=== PATIENT | female | born 1980 | race Caucasian/White ===

== ENCOUNTER 2021-04-05 09:42 | Day surgery (SDC) | payer OTHER ==
[~2021-04-05] VITALS: Ht 157.5 cm; Wt 71.1 kg
[~2021-04-05 09:42] MED LIST: ALLE10TA62 PO; EZET10TA21 PO; FEXO60TA98 PO; FLON1SPR NARES; NITR1CAP26 PO; NS 1,000 ML IV ONE; PANT40TA29 PO; RIZA5TAB2 PO; URIB118C PO; VENL37.598 PO; VITMTA PO; [UNRECOGNIZED DRUG - OTHER]; [UNRECOGNIZED DRUG - OTHER]
[2021-04-05] MEDS ORDERED: POLYOPD OS (10:27)
[2021-04-05] MEDS ORDERED: RIBO400T PO (10:27)
[2021-04-05] MEDS ORDERED: ZOLO25TA PO (10:27)
[2021-04-05] MEDS ORDERED: LIDOCAINE 2% 100MG/5ML SDV (FOR ANES.) As Ordered ONE (11:25)
[2021-04-05] MEDS ORDERED: fentaNYL 100 MCG/2 ML INJECTION As Ordered ONE (11:25)
[2021-04-05] MEDS ORDERED: propofoL 500 MG/50 ML VIAL As Ordered ONE (11:25)
[2021-04-05 12:41] VITALS: BP 126/77
== END 2021-04-05 12:40 | disposition home or self-care (01) ==
LOC: M OPP 09:42
PROVIDERS: ATTEND Internal Medicine Gastroenterology
DX: K63.5 Polyp of colon (principal); K64.8 Other hemorrhoids; R19.4 Change in bowel habit; R63.4 Abnormal weight loss; K29.70 Gastritis, unspecified, without bleeding; R13.10 Dysphagia, unspecified; R10.13 Epigastric pain; Z79.899 Other long term (current) drug therapy; Z88.8 Allergy status to other drugs, medicaments and biological substances; Z91.041 Radiographic dye allergy status; F17.210 Nicotine dependence, cigarettes, uncomplicated
CPT/HCPCS: 43239; 45380; 88305; J3010

== ENCOUNTER 2021-04-14 19:14 | Emergency (ER) | payer OTHER ==
[~2021-04-14] VITALS: Ht 157.5 cm; Wt 70.9 kg
[~2021-04-14 19:14] MED LIST changes: -NS 1,000 ML IV ONE; +POLYOPD OS; +RIBO400T PO; +ZOLO25TA PO
[2021-04-14 19:15] VITALS: BP 142/92
[2021-04-14] MEDS ORDERED: gi cocktail PO (19:25)
[2021-04-14] MEDS ORDERED: CARA1TAB6 PO (19:25)
== END 2021-04-15 00:15 | disposition left against medical advice (07) ==
LOC: M ED 19:14
DX: Z53.21 Procedure and treatment not carried out due to patient leaving prior to being seen by health care provider (principal)

== ENCOUNTER → 2021-04-19 | Outpatient (CLI) | payer OTHER ==
[~2021-04-19] MED LIST changes: +CARA1TAB6 PO; +gi cocktail PO
== END ==
LOC: M WHC 04-18 10:05
PROVIDERS: ATTEND Nurse Practitioner Family
DX: Z12.31 Encounter for screening mammogram for malignant neoplasm of breast (principal)

== ENCOUNTER → 2021-04-23 | Outpatient (CLI) | payer OTHER ==
[2021-04-23 10:55] LABS: BASO % 0.1 % (0.0-1.0); EOS % 0.1 % (0.0-3.0); HEMATOCRIT 43.8 % (36.0-47.0); HEMOGLOBIN 14.2 g/dl (12.0-15.5); LYMPH % 28.7 % (24.0-44.0); MEAN CORPUSCULAR HEMOGLOBIN 28.2 pg (27.0-33.0); MEAN CORPUSCULAR HGB CONC 32.4 g/dl (32.0-36.5); MEAN CORPUSCULAR VOLUME 87.1 fl (80.0-96.0); MONO # 0.4 10^3/uL (0.0-0.8); MONO % 5.3 % (2.0-8.0); NEUTROPHILS # 4.5 10^3/uL (1.5-8.5); NEUTROPHILS % 65.4 % (36.0-66.0); PLATELET COUNT, AUTOMATED 269 10^3/uL (150-450); RED BLOOD COUNT 5.03 10^6/uL (4.00-5.40)
[2021-04-23 11:16] LABS: ALBUMIN 3.9 GM/DL (3.2-5.2); ALT/SGPT 32 U/L (12-78); BILIRUBIN,DIRECT 0.2 MG/DL (0.0-0.2); BILIRUBIN,TOTAL 0.5 MG/DL (0.2-1.0); BLOOD UREA NITROGEN 15 MG/DL (7-18); CALCIUM LEVEL 9.2 MG/DL (8.5-10.1); CARBON DIOXIDE LEVEL 30 MEQ/L (21-32); CHLORIDE LEVEL 108 MEQ/L (98-107); GLOMERULAR FILTRATION RATE > 60.0 (>58); GLUCOSE, FASTING 110 MG/DL (70-100); IRON (FE) 57 UG/DL (50-170); PERCENT SATURATION 16.9 % (13.2-45.0); POTASSIUM SERUM 4.4 MEQ/L (3.5-5.1); SODIUM LEVEL 142 MEQ/L (136-145); TOTAL IRON BINDING CAPACITY 338 UG/DL (250-450); TOTAL PROTEIN 7.1 GM/DL (6.4-8.2)
== END ==
LOC: M LAB 09:44
PROVIDERS: ATTEND Internal Medicine Gastroenterology
DX: R10.13 Epigastric pain (principal)

== ENCOUNTER → 2021-05-18 | Outpatient (CLI) | payer OTHER | LOC: M WHC 09:56 | PROVIDERS: ATTEND Nurse Practitioner Family | DX: R92.8 Other abnormal and inconclusive findings on diagnostic imaging of breast (principal) | CPT/HCPCS: 76642; 77065; G0279 ==

== ENCOUNTER 2021-05-24 15:51 | Emergency (ER) | payer OTHER ==
[~2021-05-24] VITALS: Ht 157.5 cm; Wt 70.8 kg
[2021-05-24 15:52] VITALS: BP 127/92
[2021-05-24 17:37] LABS: BASO % 0.1 % (0.0-1.0); EOS % 0.1 % (0.0-3.0); HEMATOCRIT 46.3 % (36.0-47.0); LYMPH # 2.1 10^3/uL (1.5-5.0); LYMPH % 23.7 % (24.0-44.0); MEAN CORPUSCULAR HEMOGLOBIN 28.4 pg (27.0-33.0); MEAN CORPUSCULAR HGB CONC 32.4 g/dl (32.0-36.5); MEAN CORPUSCULAR VOLUME 87.7 fl (80.0-96.0); MONO # 0.4 10^3/uL (0.0-0.8); MONO % 4.6 % (2.0-8.0); NEUTROPHILS # 6.3 10^3/uL (1.5-8.5); NEUTROPHILS % 71.3 % (36.0-66.0); PLATELET COUNT, AUTOMATED 276 10^3/uL (150-450); RED BLOOD COUNT 5.28 10^6/uL (4.00-5.40); WHITE BLOOD COUNT 8.8 10^3/uL (4.0-10.0)
[2021-05-24 18:04] LABS: ALBUMIN 3.9 GM/DL (3.2-5.2); ALT/SGPT 36 U/L (12-78); BILIRUBIN,DIRECT 0.2 MG/DL (0.0-0.2); BILIRUBIN,TOTAL 0.6 MG/DL (0.2-1.0); BLOOD UREA NITROGEN 8 MG/DL (7-18); CALCIUM LEVEL 9.4 MG/DL (8.5-10.1); CARBON DIOXIDE LEVEL 29 MEQ/L (21-32); CHLORIDE LEVEL 106 MEQ/L (98-107); GLOMERULAR FILTRATION RATE 58.6 (>58); GLUCOSE, FASTING 110 MG/DL (70-100); LIPASE 219 U/L (73-393); POTASSIUM SERUM 4.2 MEQ/L (3.5-5.1); SODIUM LEVEL 139 MEQ/L (136-145); TOTAL PROTEIN 7.1 GM/DL (6.4-8.2)
[2021-05-24 18:58] LABS: HCG, SERUM QUALITATIVE NEGATIVE (NEGATIVE)
[2021-05-24] MEDS ORDERED: BUSP10TA PO (20:33)
== END 2021-05-24 21:23 | disposition home or self-care (01) ==
LOC: M ED 15:51
DX: K29.50 Unspecified chronic gastritis without bleeding (principal); Z79.899 Other long term (current) drug therapy; Z91.041 Radiographic dye allergy status; Z88.7 Allergy status to serum and vaccine; Z88.8 Allergy status to other drugs, medicaments and biological substances; Z91.89 Other specified personal risk factors, not elsewhere classified

== ENCOUNTER 2021-08-28 03:46 | Emergency (ER) | payer OTHER ==
[~2021-08-28] VITALS: Ht 157.5 cm; Wt 66.8 kg
[~2021-08-28 03:46] MED LIST changes: +BUSP10TA PO
[2021-08-28] MEDS ORDERED: HYDR-643 PO (04:03)
[2021-08-28] MEDS ORDERED: VENL1TAB35 PO (04:03)
[2021-08-28 06:00] VITALS: BP 120/85
[2021-08-28] MEDS ORDERED: ACETAMINOPHEN 500 MG TAB PO ONE (06:45)
[2021-08-28] MEDS ORDERED: KETOROLAC 60MG 2ML VIAL IM ONE (06:45)
== END 2021-08-28 07:40 | disposition home or self-care (01) ==
LOC: M ED 03:46
DX: S49.92XA Unspecified injury of left shoulder and upper arm, initial encounter (principal); S00.502A Unspecified superficial injury of oral cavity, initial encounter; W18.39XA Other fall on same level, initial encounter; Y92.009 Unspecified place in unspecified non-institutional (private) residence as the place of occurrence of the external cause; Y93.K1 Activity, walking an animal; Y99.8 Other external cause status; E78.5 Hyperlipidemia, unspecified; F43.10 Post-traumatic stress disorder, unspecified; F41.9 Anxiety disorder, unspecified; Z91.041 Radiographic dye allergy status; Z91.048 Other nonmedicinal substance allergy status; Z88.7 Allergy status to serum and vaccine; Z88.8 Allergy status to other drugs, medicaments and biological substances; Z88.2 Allergy status to sulfonamides
CPT/HCPCS: 70450; 70486; 73030; 73080; 96372; 99283; J1885

== ENCOUNTER → 2021-11-21 | Outpatient (CLI) | payer OTHER ==
[~2021-11-21] MED LIST changes: +HYDR-643 PO; +VENL1TAB35 PO
== END ==
LOC: M RAD 08:19
PROVIDERS: ATTEND Nurse Practitioner Family
DX: R10.9 Unspecified abdominal pain (principal)
CPT/HCPCS: 78264; A9541

== ENCOUNTER → 2022-01-23 | Outpatient (CLI) | payer OTHER | LOC: M WHC 12:55 | PROVIDERS: ATTEND Nurse Practitioner Family | DX: R92.8 Other abnormal and inconclusive findings on diagnostic imaging of breast (principal) | CPT/HCPCS: 77065; G0279 ==

== ENCOUNTER → 2022-05-08 | Outpatient (CLI) | payer OTHER | LOC: M WHC 14:01 | PROVIDERS: ATTEND Nurse Practitioner Family | DX: Z12.31 Encounter for screening mammogram for malignant neoplasm of breast (principal) ==

== ENCOUNTER → 2023-01-04 | Outpatient (RCR) | payer OTHER ==
[~2023-01-04] MED LIST changes: +ARTIDRO4 OS; -POLYOPD OS
== END ==
LOC: M PT 08:49
PROVIDERS: ATTEND Nurse Practitioner Family
DX: M25.812 Other specified joint disorders, left shoulder (principal)

== ENCOUNTER 2023-02-01 07:37 | Outpatient (RCR) | payer OTHER | END 2023-02-04 | LOC: M PT 07:37 | PROVIDERS: ATTEND Nurse Practitioner Family | DX: M25.812 Other specified joint disorders, left shoulder (principal) ==

== ENCOUNTER 2023-03-06 07:45 | Outpatient (RCR) | payer OTHER ==
[~2023-03-06 07:45] MED LIST changes: -NITR1CAP26 PO; +NITR25CA2 PO
== END 2023-03-07 ==
LOC: M PT 07:45
PROVIDERS: ATTEND Nurse Practitioner Family
DX: M25.812 Other specified joint disorders, left shoulder (principal)

== ENCOUNTER → 2023-04-05 | Outpatient (RCR) | payer OTHER | LOC: M PT 03-08 07:41 | PROVIDERS: ATTEND Nurse Practitioner Family | DX: M25.812 Other specified joint disorders, left shoulder (principal) ==

== ENCOUNTER 2023-04-26 07:43 | Outpatient (RCR) | payer OTHER | END 2023-05-06 | LOC: M PT 07:43 | PROVIDERS: ATTEND Nurse Practitioner Family | DX: M25.812 Other specified joint disorders, left shoulder (principal) ==

== ENCOUNTER → 2023-05-10 | Outpatient (CLI) | payer OTHER | LOC: M WHC 11:31 | PROVIDERS: ATTEND Nurse Practitioner Family | DX: Z12.31 Encounter for screening mammogram for malignant neoplasm of breast (principal); R92.323 Mammographic fibroglandular density, bilateral breasts ==

== ENCOUNTER 2023-07-22 04:42 | Emergency (ER) | payer OTHER ==
[~2023-07-22] VITALS: Ht 157.5 cm; Wt 56.6 kg
[2023-07-22 04:46] VITALS: BP 150/94; TEMP 97.4; O2SAT 96
== END 2023-07-22 05:03 | disposition left against medical advice (07) ==
LOC: M ED 04:42 → EDBD 04:42 → M ED 05:03
DX: Z53.21 Procedure and treatment not carried out due to patient leaving prior to being seen by health care provider (principal)

== ENCOUNTER 2024-01-23 13:40 | Emergency (ER) | payer OTHER ==
[~2024-01-23] VITALS: Ht 157.5 cm; Wt 59.1 kg
[2024-01-23] MEDS ORDERED: VENL150C43 (14:01)
[2024-01-23 15:39] LABS: BASO % 0.3 % (0.0-1.0); EOS # 0.1 10^3/uL (0.0-0.5); EOS % 0.9 % (0.0-3.0); HEMOGLOBIN 15.9 g/dl (12.0-15.5); LYMPH # 1.2 10^3/uL (1.5-5.0); LYMPH % 15.8 % (24.0-44.0); MEAN CORPUSCULAR HEMOGLOBIN 29.1 pg (27.0-33.0); MEAN CORPUSCULAR HGB CONC 33.1 g/dl (32.0-36.5); MEAN CORPUSCULAR VOLUME 87.9 fl (80.0-96.0); MONO # 0.3 10^3/uL (0.0-0.8); MONO % 3.9 % (2.0-8.0); NEUTROPHILS % 78.8 % (36.0-66.0); PLATELET COUNT, AUTOMATED 220 10^3/uL (150-450); RED BLOOD COUNT 5.46 10^6/uL (4.00-5.40); WHITE BLOOD COUNT 7.7 10^3/uL (4.0-10.0)
[2024-01-23 15:58] LABS: CK-MB VALUE MASS 1.3 NG/ML (<3.6)
[2024-01-23 15:59] LABS: CPK CREATINE PHOSPHOKINASE 108 U/L (34-145)
[2024-01-23 16:00] LABS: BLOOD UREA NITROGEN 12 MG/DL (9-23); CALCIUM LEVEL 9.8 MG/DL (8.5-10.1); CARBON DIOXIDE LEVEL 27 MMOL/L (20-31); CHLORIDE LEVEL 105 MMOL/L (98-107); GLOMERULAR FILTRATION RATE > 60.0 (>58); GLUCOSE, FASTING 113 MG/DL (60-100); POTASSIUM SERUM 3.8 MMOL/L (3.5-5.1); SODIUM LEVEL 141 MMOL/L (136-145)
[2024-01-23 16:02] LABS: THYROID STIMULATING HORMONE 0.602 uIU/ML (0.55-4.78)
[2024-01-23 18:06] LABS: APPEARANCE, URINE CLEAR (CLEAR); BACTERIA, URINE AUTO NEGATIVE (NEGATIVE); BILIRUBIN, URINE AUTO NEGATIVE (NEGATIVE); BLOOD, URINE BLOOD 1+ (NEGATIVE); COLOR, URINE YELLOW (YELLOW); GLUCOSE, URINE (UA) AUTO NEGATIVE (NEGATIVE); KETONE, URINE AUTO 2+ mg/dL (NEGATIVE); LEUKOCYTE ESTERASE, URINE AUTO NEGATIVE (NEGATIVE); MUCUS, URINE SMALL (NEGATIVE); NITRITE, URINE AUTO NEGATIVE (NEGATIVE); PROTEIN, URINE AUTO NEGATIVE (NEGATIVE); RBC, URINE AUTO 11 /HPF (0-3); SPECIFIC GRAVITY URINE AUTO 1.012 (1.002-1.035); SQUAMOUS EPITHELIAL CELL UR AU 2 /HPF (0-6); WBC, URINE AUTO 0 /HPF (0-3)
[2024-01-23] MEDS: ONDANSETRON 4MG ORAL DISINTEGRATING TAB PO ONE (18:20)
[2024-01-23 18:26] LABS: AMPHETAMINES LEVEL URINE NEGATIVE (NEGATIVE); BARBITURATES URINE NEGATIVE (NEGATIVE); BENZODIAZEPINES URINE NEGATIVE (NEGATIVE); COCAINE METABOLITE URINE NEGATIVE (NEGATIVE); METHADONE URINE NEGATIVE (NEGATIVE)
[2024-01-23 18:27] LABS: OPIATES URINE NEGATIVE (NEGATIVE); PHENCYCLIDINE URINE NEGATIVE (NEGATIVE)
[2024-01-23 18:29] LABS: CANNABINOIDS URINE POSITIVE (NEGATIVE)
[2024-01-23 18:47] VITALS: BP 146/93; TEMP 99.6; O2SAT 97
== END 2024-01-23 19:44 | disposition home or self-care (01) ==
LOC: M ED 13:40 → EDBD 13:40 → M ED 19:44
DX: R55 Syncope and collapse (principal); S13.4XXA Sprain of ligaments of cervical spine, initial encounter; V47.0XXA Car driver injured in collision with fixed or stationary object in nontraffic accident, initial encounter; K59.00 Constipation, unspecified; G47.33 Obstructive sleep apnea (adult) (pediatric); F43.10 Post-traumatic stress disorder, unspecified; F41.9 Anxiety disorder, unspecified; Z88.8 Allergy status to other drugs, medicaments and biological substances; Z88.7 Allergy status to serum and vaccine; Z91.041 Radiographic dye allergy status; Z91.048 Other nonmedicinal substance allergy status; Z79.899 Other long term (current) drug therapy; Y92.410 Unspecified street and highway as the place of occurrence of the external cause; Y93.89 Activity, other specified; Y99.9 Unspecified external cause status